=== PATIENT | female | born 1955 | race Asian ===

== ENCOUNTER 2018-06-15 17:24 | Inpatient (IN) | payer MEDICARE, OTHER ==
[2018-06-15 17:59] LABS: Basophils # (Auto) 0.1 K/mm3 (0.0-0.1); Basophils % (Auto) 1.3 % (0.0-1.8); Eosinophils # (Auto) 0.1 K/mm3 (0.0-0.4); Hematocrit 35.6 % (30.3-42.9); Hemoglobin 11.4 gm/dl (10.1-14.3); Lymphocytes # (Auto) 1.4 K/mm3 (1.2-5.4); Mean Corpuscular HGB Conc 32 % (30-34); Monocytes # (Auto) 0.6 K/mm3 (0.0-0.8); Monocytes % (Auto) 8.5 % (0.0-7.3); Platelet Count 205 K/mm3 (140-440); Red Blood Count 5.49 M/mm3 (3.65-5.03); Red Cell Distribution Width 17.3 % (13.2-15.2)
--- NOTE | 2018-06-15 18:06 | Emergency Department Report ---
ED Altered Mental Status HPI - General Chief Complaint: Altered Mental Status Stated Complaint: FALL Time Seen by Provider: 06/15/18 18:05 Source: patient, family, EMS Mode of arrival: Stretcher Limitations: Altered Mental Status - History of Present Illness Initial Comments: Patient is a 63-year-old female that presents emergency room with complaints of fall and head injury and confusion. Patient states that she feels confused. Patient at this time is A&OX2. Patient is confused on date. Patient states she tripped and fell. Patient states that she is having facial pain and a 4-5 out of 10. Patient states the pain is the same. Patient states when she fell she hit her face. Patient denies chest pain. Patient denies shortness of breath. Patient denies neck pain. Patient denies abdominal pain. Patient denies extremity pain. Family at bedside to help with history MD Complaint: altered mental status, confusion -: Sudden Severity: moderate Consistency of Symptoms: getting worse, constant Associated Symptoms: denies: chest pain, cough, diaphoresis, fever/chills, headaches, loss of appetite, malaise, nausea/vomiting, rash, seizure, shortness of breath, syncope, weakness, foul smelling urine, diarrhea, incontinence - Related Data Home Medications Medication Instructions Recorded Confirmed Last Taken Unobtainable 06/15/18 06/15/18 Unknown Allergies Allergy/AdvReac Type Severity Reaction Status Date / Time No Known Allergies Allergy Unverified 06/15/18 17:25 ED Review of Systems ROS: Stated complaint: FALL Other details as noted in HPI Constitutional: denies: chills, fever Eyes: denies: eye pain, eye discharge, vision change ENT: denies: ear pain, throat pain Respiratory: denies: cough, shortness of breath, wheezing Cardiovascular: denies: chest pain, palpitations Endocrine: no symptoms reported Gastrointestinal: denies: abdominal pain, nausea, diarrhea Genitourinary: denies: urgency, dysuria, discharge Musculoskeletal: denies: back pain, joint swelling, arthralgia Skin: denies: rash, lesions Neurological: confusion. denies: headache, weakness, paresthesias Psychiatric: denies: anxiety, depression Hematological/Lymphatic: denies: easy bleeding, easy bruising ED Past Medical Hx - Past Medical History Previous Medical History?: Yes Hx Diabetes: Yes Additional medical history: Possible HTN, hx vertigo, pt has some type of drainage tubes due to head injury 10 years ago. Family and pt states she uses a machine. - Surgical History Past Surgical History?: Yes Additional Surgical History: Unknown, head - Family History Family history: no significant - Social History Smoking Status: Never Smoker Substance Use Type: None - Medications Home Medications: Home Medications Medication Instructions Recorded Confirmed Last Taken Type Unobtainable 06/15/18 06/15/18 Unknown History ED Physical Exam - General Limitations: Altered Mental Status General appearance: alert, in no apparent distress - Head Head exam: Present: atraumatic, normocephalic - Eye Eye exam: Present: normal appearance, PERRL Pupils: Present: normal accommodation - ENT ENT exam: Present: mucous membranes moist, other (nasal abrasion noted) - Neck Neck exam: Present: normal inspection - Respiratory Respiratory exam: Present: normal lung sounds bilaterally. Absent: respiratory distress - Cardiovascular Cardiovascular Exam: Present: regular rate, normal rhythm. Absent: systolic murmur, diastolic murmur, rubs, gallop - GI/Abdominal GI/Abdominal exam: Present: soft, normal bowel sounds - Extremities Exam Extremities exam: Present: normal inspection - Back Exam Back exam: Present: normal inspection - Neurological Exam Neurological exam: Present: alert, altered - Psychiatric Psychiatric exam: Present: normal affect, normal mood - Skin Skin exam: Present: warm, dry, intact, normal color. Absent: rash - Assessment Assessment Interval: Baseline - Level of Consciousness 1a. Level of Consciousness: alert/keenly responsive - LOC Questions 1b. LOC Questions: answers both correctly - LOC Command 1c. LOC Commands: performs tasks correctly - Best Gaze 2. Best Gaze: normal - Visual 3. Visual: no visual loss - Facial Palsy 4. Facial Palsy: normal symmetrical movement - Motor Arm 5b. Motor Arm Right: no drift 5a. Motor Arm Left: no drift - Motor Leg 6b. Motor Leg Right: no drift 6a. Motor Leg Left: no drift - Limb Ataxia 7. Limb Ataxia: absent - Sensory 8. Sensory: normal - Best Language 9. Best Language: no aphasia - Dysarthria 10. Dysarthria: normal - Extinction and Inattention 11. Extinction/Inattention: no abnormality - Scoring Total Score: 0 Stroke Severity: No Stroke Symptoms ED Course Vital Signs 06/15/18 06/15/18 06/15/18 17:36 17:45 17:47 Temperature 98.7 F Pulse Rate 108 H 113 H Respiratory 12 15 Rate Blood Pressure 198/123 Blood Pressure [Left] O2 Sat by Pulse 98 Oximetry 06/15/18 06/15/18 06/15/18 18:00 18:32 19:10 Temperature Pulse Rate 108 H 109 H Respiratory 13 12 Rate Blood Pressure 187/120 187/120 184/112 Blood Pressure [Left] O2 Sat by Pulse 98 98 Oximetry 06/15/18 06/15/18 06/15/18 21:11 21:13 21:14 Temperature Pulse Rate 109 H 109 H 109 H Respiratory 11 L Rate Blood Pressure 200/112 200/112 Blood Pressure 200/112 [Left] O2 Sat by Pulse 97 Oximetry 06/15/18 06/15/18 06/15/18 21:15 22:00 22:15 Temperature Pulse Rate 98 H 93 H 94 H Respiratory 12 15 12 Rate Blood Pressure 204/105 200/140 134/80 Blood Pressure [Left] O2 Sat by Pulse 99 Oximetry 06/15/18 06/15/18 22:30 22:40 Temperature Pulse Rate 87 89 Respiratory 11 L 20 Rate Blood Pressure 134/80 104/74 Blood Pressure [Left] O2 Sat by Pulse Oximetry - Reevaluation(s) Reevaluation #1: The origin of the patient's altered mental status is unclear. CTs are all negative. Patient does have a UTI and hyperglycemia. Patient was admitted to the hospitalist service. Patient agrees with plan of care and admission. 06/15/18 21:12 - Consultations Consultation #1: Hospitalist consulted for admission. Hospitalist to admit patient. Hospitalist to assume care patient. 06/15/18 21:12 - Lab Data Result diagrams: 06/15/18 17:45 06/15/18 17:45 Lab Results 06/15/18 06/15/18 06/15/18 Range/Units 17:45 17:45 17:45 WBC 6.7 (4.5-11.0) K/mm3 RBC 5.49 H (3.65-5.03) M/mm3 Hgb 11.4 (10.1-14.3) gm/dl Hct 35.6 (30.3-42.9) % MCV 65 L (79-97) fl MCH 21 L (28-32) pg MCHC 32 (30-34) % RDW 17.3 H (13.2-15.2) % Plt Count 205 (140-440) K/mm3 Lymph % (Auto) 21.0 (13.4-35.0) % [place] % (Auto) 8.5 H (0.0-7.3) % Eos % (Auto) 1.0 (0.0-4.3) % Baso % (Auto) 1.3 (0.0-1.8) % Lymph # 1.4 (1.2-5.4) K/mm3 [place] # 0.6 (0.0-0.8) K/mm3 Eos # 0.1 (0.0-0.4) K/mm3 Baso # 0.1 (0.0-0.1) K/mm3 Seg Neutrophils % 68.2 (40.0-70.0) % Seg Neutrophils # 4.6 (1.8-7.7) K/mm3 VBG pH (7.320-7.420) Sodium 137 (137-145) mmol/L Potassium 4.3 (3.6-5.0) mmol/L Chloride 95.4 L (98-107) mmol/L Carbon Dioxide 23 (22-30) mmol/L Anion Gap 26 mmol/L BUN 14 (7-17) mg/dL Creatinine 0.8 (0.7-1.2) mg/dL Estimated GFR > 60 ml/min BUN/Creatinine Ratio 18 % Glucose 430 H (65-100) mg/dL Calcium 9.5 (8.4-10.2) mg/dL Total Bilirubin 0.40 (0.1-1.2) mg/dL AST 19 (5-40) units/L ALT 11 (7-56) units/L Alkaline Phosphatase 125 (35-129) units/L Total Protein 8.4 H (6.3-8.2) g/dL Albumin 4.6 (3.9-5) g/dL Albumin/Globulin Ratio 1.2 % TSH 0.763 (0.270-4.200) mlU/mL Plasma/Serum Alcohol (0-0.07) % 06/15/18 06/15/18 Range/Units 17:45 21:34 WBC (4.5-11.0) K/mm3 RBC (3.65-5.03) M/mm3 Hgb (10.1-14.3) gm/dl Hct (30.3-42.9) % MCV (79-97) fl MCH (28-32) pg MCHC (30-34) % RDW (13.2-15.2) % Plt Count (140-440) K/mm3 Lymph % (Auto) (13.4-35.0) % [place] % (Auto) (0.0-7.3) % Eos % (Auto) (0.0-4.3) % Baso % (Auto) (0.0-1.8) % Lymph # (1.2-5.4) K/mm3 [place] # (0.0-0.8) K/mm3 Eos # (0.0-0.4) K/mm3 Baso # (0.0-0.1) K/mm3 Seg Neutrophils % (40.0-70.0) % Seg Neutrophils # (1.8-7.7) K/mm3 VBG pH 7.380 (7.320-7.420) Sodium (137-145) mmol/L Potassium (3.6-5.0) mmol/L Chloride (98-107) mmol/L Carbon Dioxide (22-30) mmol/L Anion Gap mmol/L BUN (7-17) mg/dL Creatinine (0.7-1.2) mg/dL Estimated GFR ml/min BUN/Creatinine Ratio % Glucose (65-100) mg/dL Calcium (8.4-10.2) mg/dL Total Bilirubin (0.1-1.2) mg/dL AST (5-40) units/L ALT (7-56) units/L Alkaline Phosphatase (35-129) units/L Total Protein (6.3-8.2) g/dL Albumin (3.9-5) g/dL Albumin/Globulin Ratio % TSH (0.270-4.200) mlU/mL Plasma/Serum Alcohol < 0.01 (0-0.07) % - EKG Data -: EKG Interpreted by [facility] EKG shows normal: sinus rhythm, axis, intervals, QRS complexes, ST-T waves Rate: normal - Radiology Data Radiology results: report reviewed FINAL REPORT PROCEDURE: CT head without contrast. TECHNIQUE: Computerized tomography of the head was performed without contrast material. HISTORY: Confusion. COMPARISON: No prior studies are available for comparison. FINDINGS: The ventricles are normal in size. There is minimal evidence of chronic ischemic white matter disease. There are no mass lesions. There is no intracranial hemorrhage. The avani varium appears intact. The mastoid air cells and visualized paranasal sinuses are well aerated. IMPRESSION: Normal study for age. FINAL REPORT PROCEDURE: CT facial bones without contrast. TECHNIQUE: Computerized tomography of the facial bones and soft tissues with axial and coronal sections performed from the cranial aspect of the frontal sinuses to the caudal portion of the mandible without contrast material. HISTORY: Facial pain. COMPARISON: No prior studies are available for comparison. FINDINGS: The facial bones appear intact. There are no fractures. The orbital contents appear normal. There are no blowout type injuries. The mastoid air cells and paranasal sinuses are clear. The facial soft tissues are unremarkable. IMPRESSION: No significant abnormality. FINAL REPORT PROCEDURE: CT cervical spine without contrast. TECHNIQUE: Computerized tomography of the cervical spine was performed from the skull base to T1 without contrast material. HISTORY: Confusion, possible neck injury. COMPARISON: No prior studies are available for comparison. FINDINGS: The cervical vertebrae have normal height and alignment. There are no fractures. There is no subluxation. There is mild disc space narrowing at C4-5 and C5-6. The spinal canal appears widely patent. The facet joints appear satisfactory. The neural foramina are widely patent. The prevertebral soft tissues have normal thickness. IMPRESSION: No evidence of acute cervical spine injury. - Medical Decision Making Patient is 63-year-old female that presents emergency room status post fall. Patient complains of facial pain and head injury and confusion. It is unclear why the patient is confused. Patient is have hyperglycemia due to noncompliance of her diabetes. Patient also found to have a UTI. This possibility UTIs in the origin of her confusion and cause her to fall. Patient will be admitted to the hospitalist service for further evaluation treatment. - Differential Diagnosis uti, ams,. fall,. concussion. dm. hyperglycemia Critical Care Time: Yes Critical care attestation.: If time is entered above; I have spent that time in minutes in the direct care of this critically ill patient, excluding procedure time. Critical Care Time: 45 minutes. ED Disposition Clinical Impression: Hyperglycemia, Facial pain Altered mental state Qualifiers: Altered mental status type: unspecified Qualified Code(s): R41.82 - Altered mental status, unspecified Fall Qualifiers: Encounter type: initial encounter Qualified Code(s): W19.XXXA - Unspecified fall, initial encounter Concussion Qualifiers: Encounter type: initial encounter Loss of consciousness presence/duration: without LOC Qualified Code(s): S06.0X0A - Concussion without loss of consciousness, initial encounter UTI (urinary tract infection) Qualifiers: Urinary tract infection type: acute cystitis Hematuria presence: with hematuria Qualified Code(s): N30.01 - Acute cystitis with hematuria Head injury Qualifiers: Encounter type: initial encounter Qualified Code(s): S09.90XA - Unspecified injury of head, initial encounter Disposition: [id number] OP ADMIT IP TO THIS HOSP Is pt being admited?: Yes Does the pt Need Aspirin: No Condition: Critical Time of Disposition: 21:14
[2018-06-15 18:13] LABS: Mean Corpuscular Volume 65 fl (79-97)
[2018-06-15 18:17] LABS: Albumin 4.6 g/dL (3.9-5); BUN/Creatinine Ratio 18; Blood Urea Nitrogen 14 mg/dL (7-17); Calcium 9.5 mg/dL (8.4-10.2); Hemolysis Index 237
[2018-06-15 18:45] LABS: Alanine Aminotransferase 11 units/L (7-56)
--- NOTE | 2018-06-15 18:56 | Cat Scan Report ---
FINAL REPORT PROCEDURE: CT cervical spine without contrast. TECHNIQUE: Computerized tomography of the cervical spine was performed from the skull base to T1 wit hout contrast material. HISTORY: Confusion, possible neck injury. COMPARISON: No prior studies are available for comparison. FINDINGS: The cervical vertebrae have normal height and alignment. There are no fractures. There is no subluxat ion. There is mild disc space narrowing at C4-5 and C5-6. The spinal canal appears widely patent. The facet joints appear satisfactory. The neural foramina are widely patent. The prevertebral soft tissu es have normal thickness. IMPRESSION: No evidence of acute cervical spine injury.
--- NOTE | 2018-06-15 19:11 | Cat Scan Report ---
FINAL REPORT PROCEDURE: CT head without contrast. TECHNIQUE: Computerized tomography of the head was performed without contrast material. HISTORY: Confusion. COMPARISON: No prior studies are available for comparison. FINDINGS: The ventricles are normal in size. There is minimal evidence of chronic ischemic white matter disease . There are no mass lesions. There is no intracranial hemorrhage. The calvarium appears intact. The m astoid air cells and visualized paranasal sinuses are well aerated. IMPRESSION: Normal study for age.
[2018-06-15 19:27] LABS: Bilirubin,Urine NEG (Negative); Blood,Urine SM (Negative); Color,Urine Straw (Yellow); Mucus,Urine FEW /HPF; Protein,Urine <15 mg/dL mg/dL (Negative); Urobilinogen,Urine < 2.0 mg/dL (<2.0)
[2018-06-15 19:32] LABS: Amphetamine Screen,Urine PRESUMPTIVE NEGATIVE; Benzodiazepines Screen,Urine PRESUMPTIVE NEGATIVE; Cannabinoid Screen,Urine PRESUMPTIVE NEGATIVE; Cocaine Screen,Urine PRESUMPTIVE NEGATIVE; Methadone Screen,Urine PRESUMPTIVE NEGATIVE; Opiate Screen,Urine PRESUMPTIVE NEGATIVE
--- NOTE | 2018-06-15 19:50 | Cat Scan Report ---
FINAL REPORT PROCEDURE: CT facial bones without contrast. TECHNIQUE: Computerized tomography of the facial bones and soft tissues with axial and coronal secti ons performed from the cranial aspect of the frontal sinuses to the caudal portion of the mandible wi thout contrast material. HISTORY: Facial pain. COMPARISON: No prior studies are available for comparison. FINDINGS: The facial bones appear intact. There are no fractures. The orbital contents appear normal. There are no blowout type injuries. The mastoid air cells and paranasal sinuses are clear. The facial soft tis sues are unremarkable. IMPRESSION: No significant abnormality.
[2018-06-15] MEDS ORDERED: CATAPRES PO ONE ×2 (21:06→21:13)
[2018-06-15] MEDS ORDERED: NACL 0.9% 1000 ML 1,000 ML IV ONE (21:14)
[2018-06-15] MEDS ORDERED: ROCEPHIN/NS 1 GM/50 ML 1 GM/50 ML BAG IV ONE (21:14)
[2018-06-15] MEDS ORDERED: ZOFRAN IV PRN ×2 (21:21→22:22)
[2018-06-15] MEDS ORDERED: SODIUM CHLORIDE FLUSH SYRINGE 10 ML IV PRN (21:21)
[2018-06-15] MEDS ORDERED: APRESOLINE IV PRN (21:38)
[2018-06-15] MEDS: SODIUM CHLORIDE FLUSH SYRINGE 10 ML IV SCH (21:58)
[2018-06-15] MEDS ORDERED: MORPHINE IV PRN (22:01)
--- NOTE | 2018-06-15 22:01 | History and Physical Report ---
<SKYE MERINO - Last Filed: 06/15/18 22:37> History of Present Illness Date of examination: 06/15/18 Date of admission: 06/15/2018 Chief complaint: Status post fall, head injury, confusion History of present illness: Patient is a 63-year-old female with past medical history of vertigo (Ear canal tube), diabetes mellitus type 2 and prior head injury who was brought to the ER by EMS after she fell and hit her head/face less than 1 hour prior to coming to the ER. Patient was accompanied by friends which helped provide the medical history. According to patient's friends, they were at "[email or web address]", as they were having lunch, she stood up to get something and she feel and on her face on the concrete floor. EMS was called, patient was very confused and disorientated she cannot remember any details prior to the fall, she complains of headache, neck pain, confusion and disorientation. In the ER patient was confused she is alert and oriented but with name she was alert and oriented to name only. Patient complains of pain in her leg from the fall, and her face, denies prior illness, denies chest pain, denies shortness of breath, denies nausea or vomiting, denies abdominal pain. Patient had a CT scan in the ER which was normal, her laboratory values were within normal except for blood sugar of 430, her blood pressure was 200/140, a UA analysis was positive for UTI. Patient is admitted for further evaluation and treatments, I spoke to Dr Perico Lay, covering physician for Dr Rosalino Mancuso (ENT) at [phone], he is informed of patient fall and hospitalization. Past History Past Medical History: diabetes (AI URI) Past Surgical History: Other (austachien tube in) Social history: no significant social history, single Family history: no significant family history Medications and Allergies Allergies Allergy/AdvReac Type Severity Reaction Status Date / Time No Known Allergies Allergy Unverified 06/15/18 17:25 Home Medications Medication Instructions Recorded Confirmed Last Taken Type Unobtainable 06/15/18 06/15/18 Unknown History Active Meds: Active Medications Acetaminophen (Tylenol) 650 mg PO Q4H PRN PRN Reason: Pain MILD(1-3)/Fever >100.5/NOVAK Enoxaparin Sodium (Lovenox) 40 mg SUB-Q QDAY [facility] Hydralazine HCl (Apresoline) 5 mg IV Q6H PRN PRN Reason: Hypertension Sodium Chloride (Nacl 0.9% 1000 Ml) 1,000 mls @ 999 mls/hr IV BOLUS ONE Stop: 06/15/18 22:14 Last Admin: 06/15/18 21:37 Dose: 999 mls/hr Documented by: Ondansetron HCl (Zofran) 4 mg IV Q8H PRN PRN Reason: Nausea And Vomiting Sodium Chloride (Sodium Chloride Flush Syringe 10 Ml) 10 ml IV BID EDVIN Last Admin: 06/15/18 21:58 Dose: 10 ml Documented by: Sodium Chloride (Sodium Chloride Flush Syringe 10 Ml) 10 ml IV PRN PRN PRN Reason: LINE FLUSH Review of Systems Ears, nose, mouth and throat: nose pain Musculoskeletal: neck pain Neurological: confusion, memory loss Psychiatric: anxiety Exam - Constitutional Vitals: Temp Pulse Resp BP Pulse Ox 98.7 F 109 H 11 L 200/112 97 06/15/18 17:47 06/15/18 21:14 06/15/18 21:11 06/15/18 21:14 06/15/18 21:11 General appearance: Present: mild distress - EENT Eyes: Present: EOM intact ENT: hearing intact - Neck Neck: Present: normal ROM - Respiratory Respiratory effort: normal Respiratory: bilateral: CTA - Cardiovascular Rhythm: regular - Extremities Extremities: no ischemia, No edema Peripheral Pulses: within normal limits - Abdominal General gastrointestinal: Present: non-tender, non-distended Female genitourinary: Present: deferred - Rectal Rectal Exam: deferred - Integumentary Integumentary: Present: warm, dry - Musculoskeletal Musculoskeletal: strength equal bilaterally - Psychiatric Psychiatric: memory intact Results - Labs CBC & Chem 7: 06/15/18 17:45 06/15/18 17:45 Labs: Laboratory Last Values WBC 6.7 K/mm3 (4.5-11.0) 06/15/18 17:45 RBC 5.49 M/mm3 (3.65-5.03) H 06/15/18 17:45 Hgb 11.4 gm/dl (10.1-14.3) 06/15/18 17:45 Hct 35.6 % (30.3-42.9) 06/15/18 17:45 MCV 65 fl (79-97) L 06/15/18 17:45 MCH 21 pg (28-32) L 06/15/18 17:45 MCHC 32 % (30-34) 06/15/18 17:45 RDW 17.3 % (13.2-15.2) H 06/15/18 17:45 Plt Count 205 K/mm3 (140-440) 06/15/18 17:45 Lymph % (Auto) 21.0 % (13.4-35.0) 06/15/18 17:45 [place] % (Auto) 8.5 % (0.0-7.3) H 06/15/18 17:45 Eos % (Auto) 1.0 % (0.0-4.3) 06/15/18 17:45 Baso % (Auto) 1.3 % (0.0-1.8) 06/15/18 17:45 Lymph # 1.4 K/mm3 (1.2-5.4) 06/15/18 17:45 [place] # 0.6 K/mm3 (0.0-0.8) 06/15/18 17:45 Eos # 0.1 K/mm3 (0.0-0.4) 06/15/18 17:45 Baso # 0.1 K/mm3 (0.0-0.1) 06/15/18 17:45 Seg Neutrophils % 68.2 % (40.0-70.0) 06/15/18 17:45 Seg Neutrophils # 4.6 K/mm3 (1.8-7.7) 06/15/18 17:45 Sodium 137 mmol/L (137-145) 06/15/18 17:45 Potassium 4.3 mmol/L (3.6-5.0) 06/15/18 17:45 Chloride 95.4 mmol/L (98-107) L 06/15/18 17:45 Carbon Dioxide 23 mmol/L (22-30) 06/15/18 17:45 Anion Gap 26 mmol/L 06/15/18 17:45 BUN 14 mg/dL (7-17) 06/15/18 17:45 Creatinine 0.8 mg/dL (0.7-1.2) 06/15/18 17:45 Estimated GFR > 60 ml/min 06/15/18 17:45 BUN/Creatinine Ratio 18 % 06/15/18 17:45 Glucose 430 mg/dL (65-100) H 06/15/18 17:45 Calcium 9.5 mg/dL (8.4-10.2) 06/15/18 17:45 Total Bilirubin 0.40 mg/dL (0.1-1.2) 06/15/18 17:45 AST 19 units/L (5-40) 06/15/18 17:45 ALT 11 units/L (7-56) 06/15/18 17:45 Alkaline Phosphatase 125 units/L (35-129) 06/15/18 17:45 Total Protein 8.4 g/dL (6.3-8.2) H 06/15/18 17:45 Albumin 4.6 g/dL (3.9-5) 06/15/18 17:45 Albumin/Globulin Ratio 1.2 % 06/15/18 17:45 TSH 0.763 mlU/mL (0.270-4.200) 06/15/18 17:45 Urine Color Straw (Yellow) 06/15/18 Unknown Urine Turbidity Clear (Clear) 06/15/18 Unknown Urine pH 6.0 (5.0-7.0) 06/15/18 Unknown Ur Specific [place] 1.016 (1.003-1.030) 06/15/18 Unknown Urine Protein <15 mg/dl mg/dL (Negative) 06/15/18 Unknown Urine Glucose (UA) >=500 mg/dL (Negative) 06/15/18 Unknown Urine Ketones 80 mg/dL (Negative) 06/15/18 Unknown Urine Blood Sm (Negative) 06/15/18 Unknown Urine Nitrite Neg (Negative) 06/15/18 Unknown Urine Bilirubin Neg (Negative) 06/15/18 Unknown Urine Urobilinogen < 2.0 mg/dL (<2.0) 06/15/18 Unknown Ur Leukocyte Esterase Sm (Negative) 06/15/18 Unknown Urine WBC (Auto) 9.0 /HPF (0.0-6.0) H 06/15/18 Unknown Urine RBC (Auto) 5.0 /HPF (0.0-6.0) 06/15/18 Unknown U Epithel Cells (Auto) 2.0 /HPF (0-13.0) 06/15/18 Unknown Urine Mucus Few /HPF 06/15/18 Unknown Urine Opiates Screen Presumptive negative 06/15/18 Unknown Urine Methadone Screen Presumptive negative 06/15/18 Unknown Ur Barbiturates Screen Presumptive negative 06/15/18 Unknown Ur Phencyclidine Scrn Presumptive negative 06/15/18 Unknown Ur Amphetamines Screen Presumptive negative 06/15/18 Unknown U Benzodiazepines Scrn Presumptive negative 06/15/18 Unknown Urine Cocaine Screen Presumptive negative 06/15/18 Unknown U Marijuana (THC) Screen Presumptive negative 06/15/18 Unknown Drugs of Abuse Note Disclamer 06/15/18 Unknown Plasma/Serum Alcohol < 0.01 % (0-0.07) 06/15/18 17:45 Assessment and Plan Assessment and plan: 1. Status post fall with head injury 2. History of prior head injury 3. History of vertigo (Ear canal tube) 4. Uncontrol Diabetes mellitus type 2 5. Accelerated hypertension 6. Acute encephalopaty Plan: Patient is admitted for acute encephalopathy , UTI Consult neurology for confusion/head injury MRI of the brain for further evaluation Neuro check every 4 hours Seizure precaution/Fall precaution Oxycodone when necessary for headache Hydralazine IV when necessary for elevated BP Meclizine 25 mg every 8 hours PRN for vertigo was Roceftin 1 g IV every 24 hours for UTI Accu-Chek with insulin per sliding scale Hemoglobin A1c Resume patient's home meds Further plan per neurology recommendation Plan of care was discussed with patient and friends in room Patient's condition and plan of care was discussed with Dr. Morley Advance Directives: Yes VTE prophylaxis?: Mechanical <ARIADNA MORLEY E - Last Filed: 06/16/18 06:21> History of Present Illness Date of admission: 06/15/18 21:36 Medications and Allergies Active Meds: Active Medications Acetaminophen (Tylenol) 650 mg PO Q4H PRN PRN Reason: Pain MILD(1-3)/Fever >100.5/NOVAK Aspirin (Aspirin) 325 mg PO QDAY EDVIN Bisacodyl (Dulcolax) 10 mg MT QDAY PRN PRN Reason: Constipation Enoxaparin Sodium (Lovenox) 40 mg SUB-Q QDAY EDVIN Hydralazine HCl (Apresoline) 5 mg IV Q6H PRN PRN Reason: Hypertension Sodium Chloride (Nacl 0.9% 1000 Ml) 1,000 mls @ 100 mls/hr IV DIRECT EDVIN Ceftriaxone Sodium (Rocephin/Ns 1 Gm/50 Ml) 1 gm in 50 mls @ 100 mls/hr IV Q24HR EDVIN; Protocol Insulin Human Regular (Humulin R) 0 units SUB-Q ACHS EDVIN; Protocol Last Admin: 06/15/18 22:35 Dose: 4 units Documented by: Magnesium Hydroxide (Milk Of Magnesia) 30 ml PO Q4H PRN PRN Reason: Constipation Metoclopramide HCl (Reglan) 10 mg PO Q6H PRN PRN Reason: Nausea And Vomiting Ondansetron HCl (Zofran) 4 mg IV Q8H PRN PRN Reason: Nausea And Vomiting Promethazine HCl (Phenergan) 25 mg MT Q6H PRN PRN Reason: Nausea And Vomiting Sodium Chloride (Sodium Chloride Flush Syringe 10 Ml) 10 ml IV BID [facility] Last Admin: 06/15/18 21:58 Dose: 10 ml Documented by: Sodium Chloride (Sodium Chloride Flush Syringe 10 Ml) 10 ml IV PRN PRN PRN Reason: LINE FLUSH Exam - Constitutional Vitals: Temp Pulse Resp BP Pulse Ox 97.3 F L 81 20 106/63 97 06/15/18 23:55 06/15/18 23:55 06/15/18 23:55 06/15/18 23:55 06/15/18 23:55 Results - Labs CBC & Chem 7: 06/16/18 03:30 06/16/18 03:30 Labs: Laboratory Last Values WBC 6.7 K/mm3 (4.5-11.0) 06/15/18 17:45 RBC 5.49 M/mm3 (3.65-5.03) H 06/15/18 17:45 Hgb 11.4 gm/dl (10.1-14.3) 06/15/18 17:45 Hct 35.6 % (30.3-42.9) 06/15/18 17:45 MCV 65 fl (79-97) L 06/15/18 17:45 MCH 21 pg (28-32) L 06/15/18 17:45 MCHC 32 % (30-34) 06/15/18 17:45 RDW 17.3 % (13.2-15.2) H 06/15/18 17:45 Plt Count 205 K/mm3 (140-440) 06/15/18 17:45 Lymph % (Auto) 21.0 % (13.4-35.0) 06/15/18 17:45 [place] % (Auto) 8.5 % (0.0-7.3) H 06/15/18 17:45 Eos % (Auto) 1.0 % (0.0-4.3) 06/15/18 17:45 Baso % (Auto) 1.3 % (0.0-1.8) 06/15/18 17:45 Lymph # 1.4 K/mm3 (1.2-5.4) 06/15/18 17:45 [place] # 0.6 K/mm3 (0.0-0.8) 06/15/18 17:45 Eos # 0.1 K/mm3 (0.0-0.4) 06/15/18 17:45 Baso # 0.1 K/mm3 (0.0-0.1) 06/15/18 17:45 Seg Neutrophils % 68.2 % (40.0-70.0) 06/15/18 17:45 Seg Neutrophils # 4.6 K/mm3 (1.8-7.7) 06/15/18 17:45 VBG pH 7.380 (7.320-7.420) 06/15/18 21:34 Sodium 137 mmol/L (137-145) 06/15/18 17:45 Potassium 4.3 mmol/L (3.6-5.0) 06/15/18 17:45 Chloride 95.4 mmol/L (98-107) L 06/15/18 17:45 Carbon Dioxide 23 mmol/L (22-30) 06/15/18 17:45 Anion Gap 26 mmol/L 06/15/18 17:45 BUN 14 mg/dL (7-17) 06/15/18 17:45 Creatinine 0.8 mg/dL (0.7-1.2) 06/15/18 17:45 Estimated GFR > 60 ml/min 06/15/18 17:45 BUN/Creatinine Ratio 18 % 06/15/18 17:45 Glucose 430 mg/dL (65-100) H 06/15/18 17:45 POC Glucose 260 (70-105) H 06/15/18 22:31 Calcium 9.5 mg/dL (8.4-10.2) 06/15/18 17:45 Total Bilirubin 0.40 mg/dL (0.1-1.2) 06/15/18 17:45 AST 19 units/L (5-40) 06/15/18 17:45 ALT 11 units/L (7-56) 06/15/18 17:45 Alkaline Phosphatase 125 units/L (35-129) 06/15/18 17:45 Total Protein 8.4 g/dL (6.3-8.2) H 06/15/18 17:45 Albumin 4.6 g/dL (3.9-5) 06/15/18 17:45 Albumin/Globulin Ratio 1.2 % 06/15/18 17:45 TSH 0.763 mlU/mL (0.270-4.200) 06/15/18 17:45 Urine Color Straw (Yellow) 06/15/18 Unknown Urine Turbidity Clear (Clear) 06/15/18 Unknown Urine pH 6.0 (5.0-7.0) 06/15/18 Unknown Ur Specific [place] 1.016 (1.003-1.030) 06/15/18 Unknown Urine Protein <15 mg/dl mg/dL (Negative) 06/15/18 Unknown Urine Glucose (UA) >=500 mg/dL (Negative) 06/15/18 Unknown Urine Ketones 80 mg/dL (Negative) 06/15/18 Unknown Urine Blood Sm (Negative) 06/15/18 Unknown Urine Nitrite Neg (Negative) 06/15/18 Unknown Urine Bilirubin Neg (Negative) 06/15/18 Unknown Urine Urobilinogen < 2.0 mg/dL (<2.0) 06/15/18 Unknown Ur Leukocyte Esterase Sm (Negative) 06/15/18 Unknown Urine WBC (Auto) 9.0 /HPF (0.0-6.0) H 06/15/18 Unknown Urine RBC (Auto) 5.0 /HPF (0.0-6.0) 06/15/18 Unknown U Epithel Cells (Auto) 2.0 /HPF (0-13.0) 06/15/18 Unknown Urine Mucus Few /HPF 06/15/18 Unknown Urine Opiates Screen Presumptive negative 06/15/18 Unknown Urine Methadone Screen Presumptive negative 06/15/18 Unknown Ur Barbiturates Screen Presumptive negative 06/15/18 Unknown Ur Phencyclidine Scrn Presumptive negative 06/15/18 Unknown Ur Amphetamines Screen Presumptive negative 06/15/18 Unknown U Benzodiazepines Scrn Presumptive negative 06/15/18 Unknown Urine Cocaine Screen Presumptive negative 06/15/18 Unknown U Marijuana (THC) Screen Presumptive negative 06/15/18 Unknown Drugs of Abuse Note Disclamer 06/15/18 Unknown Plasma/Serum Alcohol < 0.01 % (0-0.07) 06/15/18 17:45 Assessment and Plan Assessment and plan: Patient seen and examined with DIRECTOR OUTPATIENT SERVICES. This is a 63-year-old woman with a history of vertigo, diabetes was at a [employer] when she sustained a fall and hit her head on a wall. She denies warning signs before full. She has difficulty remembering events before the democrat, her mental status is improving. Blood pressure is elevated, no history of hypertension. Patient states she had a head injury 12 years ago with neurological symptoms that improved. Her physical exam is benign. Patient is being admitted for encephalopathy, amnesia secondary to fall, hypertensive urgency .Agree with the plan as stated above
[2018-06-15] MEDS ORDERED: PHENERGAN PR PRN (22:22)
[2018-06-15] MEDS ORDERED: TYLENOL PO PRN (22:22)
[2018-06-15] MEDS ORDERED: REGLAN PO PRN (22:22)
[2018-06-15] MEDS ORDERED: MILK OF MAGNESIA PO PRN (22:22)
[2018-06-15] MEDS ORDERED: SODIUM CHLORIDE FLUSH SYRINGE 10 ML INJ PRN (22:22)
[2018-06-15] MEDS ORDERED: DULCOLAX PR PRN (22:22)
[2018-06-15] MEDS: HumuLIN R SUB-Q SCH (22:35)
[2018-06-15] MEDS ORDERED: HumuLIN R ONE (22:37)
[2018-06-15] MEDS ORDERED: NACL 0.9% 1000 ML 1,000 ML IV SCH (23:00)
[2018-06-16 04:48] LABS: Basophils # (Auto) 0.1 K/mm3 (0.0-0.1); Eosinophils # (Auto) 0.1 K/mm3 (0.0-0.4); Eosinophils % (Auto) 2.6 % (0.0-4.3); Hematocrit 33.7 % (30.3-42.9); Hemoglobin 10.3 gm/dl (10.1-14.3); Lymphocytes # (Auto) 1.2 K/mm3 (1.2-5.4); Lymphocytes % (Auto) 22.5 % (13.4-35.0); Mean Corpuscular HGB Conc 30 % (30-34); Monocytes # (Auto) 0.6 K/mm3 (0.0-0.8); Monocytes % (Auto) 10.5 % (0.0-7.3); Platelet Count 160 K/mm3 (140-440); Red Cell Distribution Width 17.2 % (13.2-15.2)
[2018-06-16 04:50] LABS: Mean Corpuscular Volume 66 fl (79-97)
[2018-06-16 05:14] LABS: Alanine Aminotransferase 8 units/L (7-56); Albumin 3.8 g/dL (3.9-5); BUN/Creatinine Ratio 20; Blood Urea Nitrogen 10 mg/dL (7-17); Calcium 8.6 mg/dL (8.4-10.2); Chol/HDL Ratio 1.66 %; HDL Cholesterol 69 mg/dL (40-59); Hemolysis Index 4; LDL Cholesterol,Direct 37 mg/dL (50-130)
[2018-06-16] MEDS: HumuLIN R SUB-Q SCH ×5 (09:58→21:18)
[2018-06-16] MEDS: SODIUM CHLORIDE FLUSH SYRINGE 10 ML IV SCH ×2 (10:00→21:19)
[2018-06-16] MEDS ORDERED: ROCEPHIN/NS 1 GM/50 ML 1 GM/50 ML BAG IV SCH (10:00)
[2018-06-16] MEDS ORDERED: LOVENOX SUB-Q SCH (10:00)
[2018-06-16] MEDS ORDERED: ASPIRIN PO SCH (10:00)
[2018-06-16] MEDS: TYLENOL PO PRN ×2 (10:24→20:08)
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
[2018-06-17] MEDS: TYLENOL PO PRN (07:15)
[2018-06-17] MEDS: HumuLIN R SUB-Q SCH (08:20)
[2018-06-17 08:39] VITALS: BP 151/93
--- NOTE | 2018-06-17 10:36 | Progress Note ---
Assessment and Plan Assessment and plan: Patient is a 63-year-old female with past medical history of vertigo (Ear canal tube), diabetes mellitus type 2 and prior head injury who was brought to the ER by EMS after she fell and hit her head/face less than 1 hour prior to coming to the ER. Patient was accompanied by friends which helped provide the medical history. According to patient's friends, they were at "[employer]", as they were having lunch, she stood up to get something and she feel and on her face on the concrete floor. EMS was called, patient was very confused and disorientated she cannot remember any details prior to the fall, she complains of headache, neck pain, confusion and disorientation. In the ER patient was confused she is alert and oriented but with name she was alert and oriented to name only. Patient complains of pain in her leg from the fall, and her face, denies prior illness, denies chest pain, denies shortness of breath, denies nausea or vomiting, denies abdominal pain. Patient had a CT scan in the ER which was normal, her laboratory values were within normal except for blood sugar of 430, her blood pressure was 200/140, a UA analysis was positive for UTI. Patient is admitted for further evaluation and treatments, I spoke to Dr Perico Lay, covering physician for Dr Rosalino Mancuso (ENT) at [phone], he is informed of patient fall and hospitalization. Patient was discharged but did not leave due to blood sugar. (1) Hypertension Status: Acute Comment: Resolved. Most likely secondary to sympathetic outflow would not meet medications. (2) Acute encephalopathy Status: Acute Qualifiers: Altered mental status type: unspecified Qualified Code(s): R41.82 - Altered mental status, unspecified Comment: Echo dated to initial fall unlikely concussion. Minerer disease. Advised to follow with the ENT doctor on discharge (3) Concussion Status: Acute Qualifiers: Encounter type: initial encounter Loss of consciousness presence/duration: without LOC Qualified Code(s): S06.0X0A - Concussion without loss of consciousness, initial encounter Comment: No evidence of post concussion syndrome at this time. Patient's alert oriented at her baseline. (4) Hyperglycemia Status: Acute Comment: Noncompliant with insulin. Patient states she has her insulin at home. Frankly still trying to decide whether she should use it. I explained to her how high her sugar was and I think it is very important to continue. She understands. Is scheduled to see a dietitian this week. (5) UTI (urinary tract infection) Status: Acute Qualifiers: Urinary tract infection type: acute cystitis Hematuria presence: with hematuria Qualified Code(s): N30.01 - Acute cystitis with hematuria Comment: Does not appear significant enough to affect balance at all. Only a +2 in her urine. History Interval history: Patient seen and examined, no acute distress. 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 GENERAL: The patient appeared well nourished and normally developed. Vital signs as documented. HEAD: No signs of head trauma. EYES: Pupils are equal. Extraocular motions intact. EARS: Hearing grossly intact. MOUTH: Oropharynx is normal. NECK: No adenopathy, no JVD. CHEST: Chest with clear breath sounds bilaterally. No wheezes, rales, or rhonchi. CARDIAC: Regular rate and rhythm. S1 and S2, without murmurs, gallops, or rubs. VASCULAR: No Edema. Peripheral pulses normal and equal in all extremities. ABDOMEN: Soft, without detectable tenderness. No sign of distention. No rebound or guarding, and no masses palpated. Bowel Sounds normal. MUSCULOSKELETAL: Good range of motion of all major joints. Extremities without clubbing, cyanosis or edema. NEUROLOGIC EXAM: Alert and oriented x 3. No focal sensory or strength deficits . Speech normal. Follows commands. PSYCHIATRIC: Mood normal. SKIN: abrasion on the left knee and nose - Constitutional Vitals: Temp Pulse Resp BP Pulse Ox 97.5 F L 84 18 151/93 96 06/17/18 04:36 06/17/18 08:36 06/17/18 07:15 06/17/18 08:36 06/17/18 08:36 General appearance: Present: no acute distress, well-nourished Results - Labs CBC & Chem 7: 06/16/18 03:30 06/16/18 03:30 Labs: Laboratory Last Values WBC 5.5 K/mm3 (4.5-11.0) 06/16/18 03:30 RBC 5.10 M/mm3 (3.65-5.03) H 06/16/18 03:30 Hgb 10.3 gm/dl (10.1-14.3) 06/16/18 03:30 Hct 33.7 % (30.3-42.9) 06/16/18 03:30 MCV 66 fl (79-97) L 06/16/18 03:30 MCH 20 pg (28-32) L 06/16/18 03:30 MCHC 30 % (30-34) 06/16/18 03:30 RDW 17.2 % (13.2-15.2) H 06/16/18 03:30 Plt Count 160 K/mm3 (140-440) 06/16/18 03:30 Lymph % (Auto) 22.5 % (13.4-35.0) 06/16/18 03:30 Gonzales % (Auto) 10.5 % (0.0-7.3) H 06/16/18 03:30 Eos % (Auto) 2.6 % (0.0-4.3) 06/16/18 03:30 Baso % (Auto) 1.0 % (0.0-1.8) 06/16/18 03:30 Lymph # 1.2 K/mm3 (1.2-5.4) 06/16/18 03:30 Gonzales # 0.6 K/mm3 (0.0-0.8) 06/16/18 03:30 Eos # 0.1 K/mm3 (0.0-0.4) 06/16/18 03:30 Baso # 0.1 K/mm3 (0.0-0.1) 06/16/18 03:30 Seg Neutrophils % 63.4 % (40.0-70.0) 06/16/18 03:30 Seg Neutrophils # 3.5 K/mm3 (1.8-7.7) 06/16/18 03:30 VBG pH 7.380 (7.320-7.420) 06/15/18 21:34 Sodium 135 mmol/L (137-145) L 06/16/18 03:30 Potassium 3.5 mmol/L (3.6-5.0) L 06/16/18 03:30 Chloride 96.0 mmol/L (98-107) L 06/16/18 03:30 Carbon Dioxide 24 mmol/L (22-30) 06/16/18 03:30 Anion Gap 19 mmol/L 06/16/18 03:30 BUN 10 mg/dL (7-17) 06/16/18 03:30 Creatinine 0.5 mg/dL (0.7-1.2) L 06/16/18 03:30 Estimated GFR > 60 ml/min 06/16/18 03:30 BUN/Creatinine Ratio 20 % 06/16/18 03:30 Glucose 306 mg/dL (65-100) H 06/16/18 03:30 POC Glucose 134 (70-105) H 06/17/18 06:19 Hemoglobin A1c 13.4 % (4-6) H 06/16/18 03:30 Calcium 8.6 mg/dL (8.4-10.2) 06/16/18 03:30 Total Bilirubin 0.30 mg/dL (0.1-1.2) 06/16/18 03:30 AST 13 units/L (5-40) 06/16/18 03:30 ALT 8 units/L (7-56) 06/16/18 03:30 Alkaline Phosphatase 84 units/L (35-129) 06/16/18 03:30 Total Protein 6.8 g/dL (6.3-8.2) 06/16/18 03:30 Albumin 3.8 g/dL (3.9-5) L 06/16/18 03:30 Albumin/Globulin Ratio 1.3 % 06/16/18 03:30 Triglycerides 56 mg/dL (2-149) 06/16/18 03:30 Cholesterol 115 mg/dL (50-199) 06/16/18 03:30 LDL Cholesterol Direct 37 mg/dL (50-130) L 06/16/18 03:30 HDL Cholesterol 69 mg/dL (40-59) H 06/16/18 03:30 Cholesterol/HDL Ratio 1.66 % 06/16/18 03:30 TSH 0.763 mlU/mL (0.270-4.200) 06/15/18 17:45 Urine Color Straw (Yellow) 06/15/18 Unknown Urine Turbidity Clear (Clear) 06/15/18 Unknown Urine pH 6.0 (5.0-7.0) 06/15/18 Unknown Ur Specific [place] 1.016 (1.003-1.030) 06/15/18 Unknown Urine Protein <15 mg/dl mg/dL (Negative) 06/15/18 Unknown Urine Glucose (UA) >=500 mg/dL (Negative) 06/15/18 Unknown Urine Ketones 80 mg/dL (Negative) 06/15/18 Unknown Urine Blood Sm (Negative) 06/15/18 Unknown Urine Nitrite Neg (Negative) 06/15/18 Unknown Urine Bilirubin Neg (Negative) 06/15/18 Unknown Urine Urobilinogen < 2.0 mg/dL (<2.0) 06/15/18 Unknown Ur Leukocyte Esterase Sm (Negative) 06/15/18 Unknown Urine WBC (Auto) 9.0 /HPF (0.0-6.0) H 06/15/18 Unknown Urine RBC (Auto) 5.0 /HPF (0.0-6.0) 06/15/18 Unknown U Epithel Cells (Auto) 2.0 /HPF (0-13.0) 06/15/18 Unknown Urine Mucus Few /HPF 06/15/18 Unknown Urine Opiates Screen Presumptive negative 06/15/18 Unknown Urine Methadone Screen Presumptive negative 06/15/18 Unknown Ur Barbiturates Screen Presumptive negative 06/15/18 Unknown Ur Phencyclidine Scrn Presumptive negative 06/15/18 Unknown Ur Amphetamines Screen Presumptive negative 06/15/18 Unknown U Benzodiazepines Scrn Presumptive negative 06/15/18 Unknown Urine Cocaine Screen Presumptive negative 06/15/18 Unknown U Marijuana (THC) Screen Presumptive negative 06/15/18 Unknown Drugs of Abuse Note Disclamer 06/15/18 Unknown Plasma/Serum Alcohol < 0.01 % (0-0.07) 06/15/18 17:45
== END 2018-06-17 14:10 | disposition home or self-care (01) | DRG 71 ==
LOC: ED 17:24 → 4A 21:36
PROVIDERS: ADMIT Internal Medicine; ATTEND Internal Medicine
DX: G93.40 Encephalopathy, unspecified (principal); N30.01 Acute cystitis with hematuria; I16.0 Hypertensive urgency; S06.0X0A Concussion without loss of consciousness, initial encounter; E11.65 Type 2 diabetes mellitus with hyperglycemia; R29.6 Repeated falls; W18.39XA Other fall on same level, initial encounter; Y93.89 Activity, other specified; Y92.098 Other place in other non-institutional residence as the place of occurrence of the external cause; Y99.8 Other external cause status; Z79.4 Long term (current) use of insulin
CPT/HCPCS: 36415; 70450; 70486; 72125; 80053; 80061; 80307; 80320; 81001; 82805; 82962; 83036; 84443; 85025; 93005; 93010; G0378; G0480; J0696; J1650; J1815; J7030